=== PATIENT | female | born 1990 | race African-American/Black ===

== ENCOUNTER 2016-09-24 16:17 | Emergency (ER) | payer OTHER ==
[2016-09-24 16:45] VITALS: TEMP 98.5; BMI 18.8
[2016-09-24] MEDS ORDERED: SODIUM CHLORIDE 0.9% 1000 ML INFUS.BAG IV ONE (19:33)
[2016-09-24] MEDS ORDERED: ONDANSETRON 4 MG/2 ML VIAL IVPUSH PRN (19:33)
[2016-09-24 20:03] LABS: BASOPHIL 0.5 % (0-2.0); EOSINOPHIL 1.3 % (0-4.5); MCH 29.7 pg (25.7-33.7); MCHC 33.4 g/dl (32.0-36.0); MEAN PLT VOLUME 7.7 fl (7.5-11.1); NEUTROPHILS 67.6 % (42.8-82.8); PLATELET COUNT 319 K/MM3 (134-434); RDW 13.3 % (11.6-15.6); WHITE BLOOD COUNT 8.4 K/mm3 (4.0-10.0)
[2016-09-24] MEDS ORDERED: KETOROLAC TROMETHAMINE 30 MG/1 ML VIAL IVPUSH ONE (20:04)
[2016-09-24] MEDS ORDERED: ONDANSETRON 4 MG/2 ML VIAL IVPUSH ONE (20:05)
[2016-09-24] MEDS ORDERED: KETOROLAC TROMETHAMINE 30 MG/1 ML VIAL ONE (20:06)
[2016-09-24] MEDS ORDERED: ONDANSETRON 4 MG/2 ML VIAL ONE (20:06)
[2016-09-24 20:27] LABS: ALBUMIN 4.2 g/dl (3.4-5.0); ANION GAP 15 (8-16); CALCIUM 9.3 mg/dL (8.5-10.1); CO2 22 mmol/L (21-32); CREATININE 0.7 mg/dL (0.55-1.02); GLUCOSE,RANDOM 57 mg/dL (74-106); SGOT/AST 15 U/L (15-37); SGPT/ALT 14 U/L (12-78)
[2016-09-24 20:29] LABS: ALK PHOS 54 U/L (45-117); BILIRUBIN,TOTAL 0.8 mg/dL (0.2-1.0); TOT PROT 8.4 g/dl (6.4-8.2)
--- NOTE | 2016-09-24 20:32 | PDOC ---
History of Present Illness - General Chief Complaint: Headache Stated Complaint: ABDOMINAL PAIN Time Seen by Provider: 09/24/16 19:23 - History of Present Illness Initial Comments: 09/24/16 20:04 CHIEF COMPLAINT: headache, nausea HISTORY OF PRESENT ILLNESS: 25 yo F with no PMH presents to ED with headache x 2 weeks. Patient reports that she was seen at [facility] and was discharged with a diagnosis of tension headache and referral to neuro. Patient states she then "had a drink on Wednesday, and then immediately went to lie down, got dizzy and vomited." She states her headache has returned and she hasn't felt like eating for the last couple of days. No recent travel or sick contacts. PAST MEDICAL HISTORY: Denies past medical history FAMILY HISTORY: Denies SOCIAL HISTORY: Denies tobacco, alcohol, illicit drug use. SURGICAL HISTORY: Denies ALLERGIES: No known drug allergies REVIEW OF SYSTEMS General/Constitutional: Denies fever or chills. Denies weakness, weight change. HEENT: Denies change in vision. Denies ear pain or discharge. Denies sore throat. Cardiovascular: Denies chest pain or shortness of breath. Respiratory: Denies cough, wheezing, or hemoptysis. Gastrointestinal: Denies nausea, vomiting, diarrhea or constipation. Denies rectal bleeding. Genitourinary: Denies dysuria, frequency, or change in urination. Musculoskeletal: Denies joint or muscle swelling or pain. Denies neck or back pain. Skin and breasts: Denies rash or easy bruising. Neurologic: Denies headache, vertigo, loss of consciousness, or loss of sensation. Psychiatric: Denies depression or anxiety. Endocrine: Denies increased thirst. Denies abnormal weight change. Hematologic/Lymphatic: Denies anemia, easy bleeding, or history of blood clots. Allergic/Immunologic: Denies hives or skin allergy. Denies latex allergy. PHYSICAL EXAM General Appearance: Well-appearing, appropriately dressed. No apparent distress , no intoxication. HEENT: EOMI, PERRLA, normal ENT inspection, normal voice, TMs normal, pharynx normal. No conjunctival pallor. No photophobia, scleral icterus. Neck: Supple. Trachea midline. No tenderness, rigidity, carotid bruit, stridor , lymphadenopathy, or thyromegaly. Respiratory/Chest: Lungs CTAB. No shortness of breath, chest tenderness, respiratory distress, accessory muscle use. No crackles, rales, rhonchi, stridor , wheezing, dullness Cardiovascular: RRR. S1, S2. No JVD, murmur, bradycardia, tachycardia. Vascular Pulses: Dorsalis-Pedis (R): 2+, Dorsalis-Pedis (L): 2+ Gastrointestinal/Abdominal: Normal bowel sounds. Abdomen soft, non-distended. No tenderness or rebound tenderness. No organomegaly, pulsatile mass, guarding , hernia, hepatomegaly, splenomegaly. Lymphatic: No adenopathy, tenderness. Musculoskeletal/Extremities: Normal inspection. FROM of all extremities, normal capillary refill. Pelvis Stable. No CVA tenderness. No tenderness to extremities, pedal edema, swelling, erythema or deformity. Integumentary: Appropriate color, dry, warm. No cyanosis, erythema, jaundice or rash Neurologic: handkerchief presser II-XII intact. Fully oriented, alert. Appropriate mood/affect. Motor strength 5/5. No appreciable EOM palsy, facial droop or sensory deficit. 09/24/16 21:26 Past History - Past Medical History Allergies/Adverse Reactions: Allergies Allergy/AdvReac Type Severity Reaction Status Date / Time No Known Allergies Allergy Verified 09/24/16 16:43 Home Medications: Ambulatory Orders Aspirin/Acetaminophen/Caffeine [[employer] Extra Strength Caplet] 1 each PO BID PRN #16 tablet 09/24/16 Ondansetron [Zofran *Odt*] 8 mg SL BID PRN #8 od.tablet 09/24/16 - Psycho/Social/Smoking Cessation Hx Anxiety: No Suicidal Ideation: No Smoking History: Never smoked Hx Alcohol Use: No Drug/Substance Use Hx: No Substance Use Type: None *Physical Exam - Vital Signs Last Vital Signs Temp Pulse Resp BP Pulse Ox 98.5 F 71 18 151/91 100 09/24/16 16:43 09/24/16 16:43 09/24/16 16:43 09/24/16 16:43 09/24/16 16:43 ED Treatment Course - LABORATORY CBC & Chemistry Diagram: 09/24/16 19:45 09/24/16 19:45 Medical Decision Making - Medical Decision Making 09/24/16 21:26 25 yo F with no PMH presents to ED with headache x 2 weeks and associated nausea. -IVF, Zofran, Toradol Patient reassessed; states she is feeling much better and is ready to go home. Patient agrees she does not need head CT at this time and states she will follow up with neurology this week for further evaluation. Excedrin and Zofran rx sent to pharm Advised patient to take meds as prescribed and f/u with neuro. Advised patient of signs and symptoms for return to ER; patient verbalized understanding and agrees to plan. *DC/Admit/Observation/Transfer Diagnosis at time of Disposition: Tension headache - Discharge Dispostion Admit: No - Prescriptions Prescriptions: Aspirin/Acetaminophen/Caffeine [[employer] Extra Strength Caplet] 1 each PO BID PRN #16 tablet PRN Reason: Headache Ondansetron [Zofran *Odt*] 8 mg SL BID PRN #8 od.tablet PRN Reason: Nausea And/Or Vomiting - Referrals Referrals: Mikal Hunter [Primary Care Provider] - David Graham MD [Staff Physician] - - Patient Instructions Printed Discharge Instructions: DI for Hormonal and Tension Headaches Additional Instructions: As discussed, please take medications as prescribed and follow up with neurology this week. If you experience any sudden, sharp headache, change in vision, difficulty speaking or swallowing, change in mental status, or any new or worsening symptoms, please return to the ER. - Post Discharge Activity Work/School Note: Back to Work
--- NOTE | 2016-09-24 20:43 | PDOC ---
[id number]/91 100 09/24/16 16:43 09/24/16 16:43 09/24/16 16:43 09/24/16 16:43 09/24/16 16:43 ED Treatment Course - LABORATORY CBC & Chemistry Diagram: 09/24/16 19:45 09/24/16 19:45 - ADDITIONAL ORDERS Additional order review: Laboratory Results 09/24/16 19:45 Sodium 138 Potassium 3.4 L Chloride 101 Carbon Dioxide 22 Anion Gap 15 BUN 9 D Creatinine 0.7 Creat Clearance w eGFR > 60 Random Glucose 57 L D Calcium 9.3 Total Bilirubin 0.8 D AST 15 D ALT 14 Alkaline Phosphatase 54 Total Protein 8.4 H Albumin 4.2 Lipase 137 09/24/16 19:45 RBC 4.59 MCV 89.0 MCHC 33.4 RDW 13.3 MPV 7.7 Neutrophils % 67.6 Lymphocytes % 23.9 D Monocytes % 6.7 Eosinophils % 1.3 D Basophils % 0.5 - Medications Given in the ED: ED Medications Discontinued Medications Generic Name Dose Route Start Last Admin Trade Name Freq PRN Reason Stop Dose Admin Ketorolac Tromethamine 30 mg 09/24/16 20:04 09/24/16 20:10 Toradol Injection - IVPUSH 09/24/16 20:05 30 mg ONCE ONE Administration Ondansetron HCl 4 mg 09/24/16 20:05 09/24/16 20:10 Zofran Injection IVPUSH 09/24/16 20:06 4 mg ONCE ONE Administration Sodium Chloride 1,000 ml 09/24/16 19:33 09/24/16 20:10 Normal Saline - IV 09/24/16 19:34 1,000 ml ONCE ONE Administration Medical Decision Making - Medical Decision Making 09/24/16 20:43 agree with care from KRISTYN Velez *DC/Admit/Observation/Transfer Diagnosis at time of Disposition: Tension headache - Discharge Dispostion Disposition: HOME - Prescriptions Prescriptions: Aspirin/Acetaminophen/Caffeine [[employer] Extra Strength Caplet] 1 each PO BID PRN #16 tablet PRN Reason: Headache Ondansetron [Zofran *Odt*] 8 mg SL BID PRN #8 od.tablet PRN Reason: Nausea And/Or Vomiting - Referrals Referrals: David Graham MD [Staff Physician] - Mikal Hunter [Primary Care Provider] - - Patient Instructions Printed Discharge Instructions: DI for Hormonal and Tension Headaches Additional Instructions: As discussed, please take medications as prescribed and follow up with neurology this week. If you experience any sudden, sharp headache, change in vision, difficulty speaking or swallowing, change in mental status, or any new or worsening symptoms, please return to the ER. - Post Discharge Activity Work/School Note: Back to Work
[2016-09-24 20:55] LABS: URINE APPEARANCE CLEAR; URINE BILIRUBIN NEGATIVE (NEGATIVE); URINE COLOR LTYELLOW; URINE GLUCOSE (UA) NEGATIVE (NEGATIVE); URINE KETONE 2+ (NEGATIVE); URINE LEUK ESTERASE NEGATIVE (NEGATIVE); URINE NITRITE NEGATIVE (NEGATIVE); URINE PROTEIN NEGATIVE (NEGATIVE); URINE UROBILINOGEN NEGATIVE E.U./dl (0.2-1.0)
[2016-09-24 21:23] LABS: URINE BLOOD 1+ (NEGATIVE)
[2016-09-24 21:24] VITALS: BP 116/78; PULSE 82
[2016-09-24 22:19] LABS: URINE BACTERIA RARE /hpf (NONE SEEN); URINE MUCUS FEW; URINE RBC 2 /hpf (0-3); URINE WBC 1 /hpf (3-5)
== END 2016-09-24 21:29 | disposition home or self-care (01) ==
LOC: JER 16:17
PROC: 3E0333Z Introduction of Anti-inflammatory into Peripheral Vein, Percutaneous Approach (ICD-10-PCS; principal; 2016-09-24)
PROC: 3E033GC Introduction of Other Therapeutic Substance into Peripheral Vein, Percutaneous Approach (ICD-10-PCS; 2016-09-24)
DX: G44.209 Tension-type headache, unspecified, not intractable (principal)
CPT/HCPCS: 36415; 80053; 81003; 81015; 83690; 84703; 85025; 87086; 99282-25

== ENCOUNTER 2021-05-12 13:28 | Emergency (ER) | payer OTHER ==
[2021-05-12 13:52] VITALS: BP 120/81; PULSE 100; TEMP 98.1; BMI 20.6
[2021-05-12] MEDS ORDERED: DEXAMETHASONE LIQUID 0.5 MG/5 ML PO ONE (14:22)
[2021-05-12] MEDS ORDERED: DEXAMETHASONE SOD PHOSPHATE 10 MG/1 ML VIAL ONE (14:39)
[2021-05-13 14:12] LABS: SARS-CoV-2 NAA Not Detected (Not Detected)
== END 2021-05-12 16:09 | disposition home or self-care (01) ==
LOC: JER 13:28
DX: J02.9 Acute pharyngitis, unspecified (principal)
CPT/HCPCS: 87070; 87804; 99283-25; C9803; U0003; U0005

== ENCOUNTER 2021-11-25 18:01 | Emergency (ER) | payer OTHER ==
[2021-11-25 18:41] VITALS: BP 121/69; PULSE 80; TEMP 98.3; BMI 18.6
[2021-11-25] MEDS ORDERED: SODIUM CHLORIDE 1,000 ML IV STA (19:20)
[2021-11-25] MEDS ORDERED: ONDANSETRON 4 MG/2 ML VIAL IVPUSH ONE (19:20)
[2021-11-25] MEDS ORDERED: ACETAMINOPHEN 1000 MG/100 ML BAG IVPB ONE (19:20)
[2021-11-25] MEDS ORDERED: ONDANSETRON 4 MG/2 ML VIAL ONE (19:34)
[2021-11-25] MEDS ORDERED: ACETAMINOPHEN INJECTION 100 ML IVPB ONE (19:39)
[2021-11-25 19:58] LABS: BASO % 0.3 % (0-2.0); EOS % 3.7 % (0-4.5); HEMATOCRIT 37.9 % (32.4-45.2); HEMOGLOBIN 12.5 GM/dL (10.7-15.3); LYMPH % 28.3 % (8-40); MCH 29.1 pg (25.7-33.7); MCHC 32.9 g/dl (32.0-36.0); MEAN CELL VOLUME 88.5 fl (80-96); MONO % 6.9 % (3.8-10.2); NEUT % 60.8 % (42.8-82.8); PLATELET COUNT 345 10^3/uL (134-434); RBC 4.28 M/mm3 (3.60-5.2); RDW 13.3 % (11.6-15.6); WHITE BLOOD COUNT 10.5 K/mm3 (4.0-10.0)
[2021-11-25 19:59] LABS: PH,URINE 6.5 (5.0-8.0); URINE APPEARANCE CLEAR; URINE BILIRUBIN NEGATIVE (NEGATIVE); URINE COLOR YELLOW; URINE GLUCOSE (UA) NEGATIVE (NEGATIVE); URINE KETONE NEGATIVE (NEGATIVE); URINE LEUK ESTERASE NEGATIVE (NEGATIVE); URINE NITRITE NEGATIVE (NEGATIVE); URINE PROTEIN NEGATIVE (NEGATIVE); URINE UROBILINOGEN 0.2 mg/dL (0.2-1.0)
[2021-11-25 20:19] LABS: ALBUMIN 3.7 g/dl (3.4-5.0); BLOOD UREA NITROGEN 12.1 mg/dL (7-18); CALCIUM 8.8 mg/dL (8.5-10.1)
[2021-11-25 20:22] LABS: CREATININE 0.8 mg/dL (0.55-1.3)
[2021-11-25 20:23] LABS: BILIRUBIN,TOTAL 0.4 mg/dL (0.2-1)
[2021-11-25 20:24] LABS: TOT PROT 7.6 g/dl (6.4-8.2)
== END 2021-11-25 22:35 | disposition home or self-care (01) ==
LOC: JER 18:01
PROC: 3E0333Z Introduction of Anti-inflammatory into Peripheral Vein, Percutaneous Approach (ICD-10-PCS; principal; 2021-11-25)
PROC: 3E033GC Introduction of Other Therapeutic Substance into Peripheral Vein, Percutaneous Approach (ICD-10-PCS; 2021-11-25)
PROC: 3E0337Z Introduction of Electrolytic and Water Balance Substance into Peripheral Vein, Percutaneous Approach (ICD-10-PCS; 2021-11-25)
DX: D25.9 Leiomyoma of uterus, unspecified (principal); N83.201 Unspecified ovarian cyst, right side
CPT/HCPCS: 36415; 76830-TC; 80053; 81003; 83690; 84703; 85025; 87086; 99284-25

== ENCOUNTER 2022-01-30 12:39 | Emergency (ER) | payer OTHER ==
[2022-01-30 12:44] VITALS: BP 128/79; PULSE 110; RESP 19; TEMP 98.5; BMI 20.5
[2022-01-30] MEDS ORDERED: DEXAMETHASONE SOD PHOSPHATE 10 MG/1 ML VIAL PO ONE (13:13)
[2022-01-30] MEDS ORDERED: DEXAMETHASONE SOD PHOSPHATE 4 MG/1 ML VIAL ONE (13:26)
[2022-01-30 15:21] LABS: THROAT:GRP A STREP NOT DETECTED (NOTDETECTED)
== END 2022-01-30 13:42 | disposition home or self-care (01) ==
LOC: JERFT 12:39
DX: J02.9 Acute pharyngitis, unspecified (principal)
CPT/HCPCS: 0241U-QW; 87651; 99283-25; J1100

== ENCOUNTER 2022-07-23 09:38 | Emergency (ER) | payer OTHER ==
[2022-07-23 09:52] VITALS: BP 122/74; PULSE 105; RESP 18; TEMP 98.5; BMI 19.7
[2022-07-23] MEDS ORDERED: AMOX TR/POT CLAV 875MG/125MG TABLETS (FP) PO ONE (10:37)
[2022-07-23] MEDS ORDERED: DEXAMETHASONE SOD PHOSPHATE 10 MG/1 ML VIAL IM ONE (10:38)
[2022-07-23] MEDS ORDERED: ACETAMINOPHEN 650 MG/20.3 ML ORAL SOLUTION (CUPS) PO ONE (10:38)
[2022-07-23] MEDS ORDERED: MAG HYDROX/ALH/SMC/DPHA/LIDO 240 ML MOUTHWASH MM SCH ×2 (10:41→12:00)
[2022-07-23] MEDS ORDERED: AMOX TR/POT CLAV 875MG/125MG TABLETS (FP) ONE (10:45)
[2022-07-23] MEDS ORDERED: DEXAMETHASONE SOD PHOSPHATE 10 MG/1 ML VIAL ONE (10:46)
[2022-07-23] MEDS ORDERED: ACETAMINOPHEN 650 MG/20.3 ML ORAL SOLUTION (CUPS) ONE (10:46)
== END 2022-07-23 11:03 | disposition home or self-care (01) ==
LOC: JERFT 09:38
PROC: 3E023GC Introduction of Other Therapeutic Substance into Muscle, Percutaneous Approach (ICD-10-PCS; principal; 2022-07-23)
DX: J03.90 Acute tonsillitis, unspecified (principal); R59.0 Localized enlarged lymph nodes
CPT/HCPCS: 0241U-QW; 87651; 99284-25; J1100

== ENCOUNTER 2022-07-30 18:17 | Emergency (ER) | payer OTHER ==
[2022-07-30 18:30] VITALS: TEMP 98.8; BMI 19.7
[2022-07-30] MEDS ORDERED: AMPICILLIN NA/SULBACTAM NA 3 GM in SODIUM CHLORIDE 100 ML IVPB ONE (19:21)
[2022-07-30] MEDS ORDERED: ACETAMINOPHEN 1000 MG/100 ML BAG IVPB ONE (19:21)
[2022-07-30] MEDS ORDERED: ACETAMINOPHEN INJECTION 100 ML IVPB ONE (19:47)
[2022-07-30 20:42] LABS: BASO % 0.3 % (0-2.0); EOS % 1.7 % (0-4.5); HEMATOCRIT 39.9 % (32.4-45.2); HEMOGLOBIN 13.4 GM/dL (10.7-15.3); MCH 28.5 pg (25.7-33.7); MCHC 33.6 g/dl (32.0-36.0); MEAN CELL VOLUME 84.6 fl (80-96); MEAN PLT VOLUME 8.1 fl (7.5-11.1); MONO % 10.2 % (3.8-10.2); NEUT % 58.8 % (42.8-82.8); PLATELET COUNT 490 10^3/uL (134-434); RBC 4.71 M/mm3 (3.60-5.2); RDW 13.2 % (11.6-15.6); WHITE BLOOD COUNT 8.3 K/mm3 (4.0-10.0)
[2022-07-30 21:01] LABS: CALCIUM 9.4 mg/dL (8.5-10.1)
[2022-07-30 21:02] LABS: ALBUMIN 3.6 g/dl (3.4-5.0); BLOOD UREA NITROGEN 10.5 mg/dL (7-18)
[2022-07-30 21:05] LABS: CREATININE 0.7 mg/dL (0.55-1.3)
[2022-07-30 21:07] LABS: BILIRUBIN,TOTAL 0.4 mg/dL (0.2-1); TOT PROT 8.5 g/dl (6.4-8.2)
[2022-07-30] MEDS ORDERED: KETOROLAC TROMETHAMINE 15 MG/ML VIAL IVPUSH ONE (21:58)
[2022-07-30] MEDS ORDERED: DEXAMETHASONE SOD PHOSPHATE 10 MG/1 ML VIAL IVPUSH ONE (21:58)
[2022-07-30 22:01] VITALS: BP 103/68; PULSE 78; RESP 16
[2022-07-30] MEDS ORDERED: DEXAMETHASONE SOD PHOSPHATE 10 MG/1 ML VIAL ONE (22:11)
[2022-07-30] MEDS ORDERED: KETOROLAC TROMETHAMINE 15 MG/ML VIAL ONE (22:11)
== END 2022-07-30 22:53 | disposition home or self-care (01) ==
LOC: JERFT 18:17
PROC: 3E033NZ Introduction of Analgesics, Hypnotics, Sedatives into Peripheral Vein, Percutaneous Approach (ICD-10-PCS; principal; 2022-07-30)
PROC: 3E03329 Introduction of Other Anti-infective into Peripheral Vein, Percutaneous Approach (ICD-10-PCS; 2022-07-30)
PROC: 3E033GC Introduction of Other Therapeutic Substance into Peripheral Vein, Percutaneous Approach (ICD-10-PCS; 2022-07-30)
PROC: 3E0333Z Introduction of Anti-inflammatory into Peripheral Vein, Percutaneous Approach (ICD-10-PCS; 2022-07-30)
DX: J03.90 Acute tonsillitis, unspecified (principal)
CPT/HCPCS: 36415; 70491-TC; 80053; 84703; 85025; 87070; 99285-25; J1100; Q9967